=== PATIENT | female | born 1995 | race Caucasian/White ===

== ENCOUNTER 2019-04-09 16:49 | Emergency (ER) | payer MEDICAID ==
[~2019-04-09] VITALS: Ht 175.3 cm; Wt 72.7 kg
[2019-04-09 16:53] VITALS: TEMP 97.2
[2019-04-09 17:33] LABS: BASO % 0.5 % (0.0-2.0); EOS # 0.1 (0.0-0.7); EOS % 1.3 % (0-4.0); GRAN # 4.7 (1.4-6.5); GRAN % 62.8 % (42.2-75.2); HEMATOCRIT 45.1 % (37.0-47.0); HEMOGLOBIN 14.7 g/dl (12.5-16.0); LYMPH # 2.2 (1.2-3.4); LYMPH % 28.9 % (20.0-51.0); MEAN CELL VOLUME 94 fl (80.0-100.0); MEAN CORPUSCULAR HEMOGLOBIN 31 pg (27.0-31.0); MEAN CORPUSCULAR HGB CONC 33 g/dl (33.0-37.0); MEAN PLATELET VOLUME 12.1 fl (7.4-10.4); MONO # 0.5 (0.1-0.6); MONO % 6.2 % (1.7-9.3); PLATELET COUNT 290 K/mm3 (130-400); RED BLOOD COUNT 4.82 M/mm3 (4.10-5.30); REDCELL DISTRIBUTION WIDTH-CV 14.1 % (11.5-14.5)
[2019-04-09 17:55] LABS: ALCOHOL(ethanol),MEDICAL < 10 mg/dL
[2019-04-09 18:04] LABS: TROPONIN-I 0.034 ng/mL (0.000-0.035)
[2019-04-09 18:07] LABS: ALBUMIN 3.2 gm/dL (3.5-5.0); CALCIUM 8.6 mg/dL (8.4-10.2); CREATININE, serum 1.2 (0.52-1.25); POTASSIUM 4.2 mmol/L (3.4-5.0); TOTAL PROTEIN 6.2 gm/dL (6.4-8.2)
[2019-04-09 18:17] LABS: TRICYCLIC ANTIDEPRESS URINE NEGATIVE
[2019-04-09 18:54] VITALS: BP 107/93; PULSE 97
== END 2019-04-09 18:55 | disposition home or self-care (01) ==
LOC: COL.ER 16:49
PROVIDERS: Emergency Medicine
DX: I50.9 Heart failure, unspecified (principal); I42.9 Cardiomyopathy, unspecified